=== PATIENT | male | born 1995 | race Two or more races ===

== ENCOUNTER 2023-09-12 21:03 | Emergency (ER) | payer MEDICAID, OTHER ==
[~2023-09-12] VITALS: Ht 182.9 cm; Wt 90.7 kg
[2023-09-12 21:10] VITALS: BP 160/96; RESP 18; O2SAT 97
[2023-09-12 21:32] LABS: Basophils # (auto) 0.1 10 ^3/uL (0-0.2); Basophils % (auto) 0.8 % (0.0-2.0); Eosinophils # (auto) 0.1 10 ^3/uL (0-0.8); Eosinophils % (auto) 0.7 % (0.0-7.0); Hematocrit 50.2 % (41.0-53.0); Lymphocytes # (auto) 4.4 10 ^3/uL (0.4-5.4); Lymphocytes % (auto) 39.1 % (10.0-50.0); Mean Corpuscular Hemoglobin 32.7 pg (28.0-32.0); Mean Corpuscular Volume 96.2 fL (80.0-100.0); Monocytes # (auto) 0.9 10 ^3/uL (0-1.3); Monocytes % (auto) 7.8 % (0.0-12.0); Neutrophils # (auto) 5.8 10 ^3/uL (1.6-8.6); Neutrophils % (auto) 51.6 % (37.0-80.0); Nucleated Red Blood Cells % 0.8 %; Red Blood Cells 5.22 10^6/uL (4.5-5.90); Red Cell Distribution Width 13.9 % (11.8-14.3); White Blood Cell 11.3 10^3/uL (4.4-10.8)
[2023-09-12] MEDS ORDERED: IBUPROFEN 600 MG TAB PO ONE (21:45)
[2023-09-12] MEDS ORDERED: LORazepam 0.5 MG TAB PO ONE (21:45)
[2023-09-12] MEDS ORDERED: FAMOTIDINE 20 MG TAB PO ONE (21:45)
[2023-09-12] MEDS ORDERED: ASPirin 81 mg TAB PO ONE (21:45)
[2023-09-12 21:46] LABS: INR 0.98 (0.9-1.15); Partial Thromboplastin Time 29.1 SEC (24.5-34.5); Prothrombin Time 10.3 sec (9.3-11.8)
[2023-09-12 21:53] LABS: Alanine Aminotransferase 27 U/L (7-40); Albumin 4.7 g/dL (3.2-4.8); Alkaline Phosphatase 126 U/L (46-116); Anion Gap 13 (5-15); Aspartate Aminotransferase 26 U/L (13-40); BUN/Creatinine Ratio 6.3 (10.0-20.0); Bilirubin, Total 0.6 mg/dL (0.2-1.0); Blood Urea Nitrogen 7 mg/dL (9-23); Calcium 9.2 mg/dL (8.7-10.4); Carbon Dioxide 23 mmol/L (20-30); Chloride 107 mmol/L (98-107); Glucose 108 mg/dL (74-106); Magnesium 2.3 mg/dL (1.6-2.6); Potassium 3.6 mmol/L (3.5-5.1); Sodium 143 mmol/L (136-145); Total Protein 7.4 g/dL (5.7-8.2)
[2023-09-12 22:07] VITALS: PULSE 97
== END 2023-09-12 22:22 | disposition left against medical advice (07) ==
LOC: ER 21:03 → EDBD 21:03 → ER 22:22
DX: R07.89 Other chest pain (principal); I10 Essential (primary) hypertension; F41.9 Anxiety disorder, unspecified
CPT/HCPCS: 36415; 80053; 80320; 83735; 83880; 84443; 84484; 85025; 85379; 85610; 85730; 93005